=== PATIENT | female | born 1980 | race Caucasian/White ===

== ENCOUNTER 2016-11-08 18:30 | Emergency (ER) | payer OTHER ==
[2016-11-08 18:49] VITALS: TEMP 98.3
[2016-11-08] MEDS ORDERED: KETOROLAC 60 MG/2 ML VIAL IM STA (19:00)
[2016-11-08] MEDS ORDERED: ORPHENADRINE 30 MG/ML 2 ML VIAL IM STA (19:00)
--- NOTE | 2016-11-08 19:03 | ED ---
Back Pain HPI - General Chief Complaint: Back Pain/Injury Stated Complaint: BACK PAIN, NO TRAUMA Time Seen by Provider: 11/08/16 18:51 Source: patient, RN notes reviewed Limitations: no limitations - History of Present Illness Initial Comments: Patient is a 36-year-old female with chief complaint of lower back pain radiates down her legs and has some numbness and tingling down her legs. Patient reports it's mainly over her right side but she does have some leg. She reports that the pain is worse with position. She states that all the symptoms occurred after she was walking in her house and twisted quickly. Patient states that since then the pain has gotten much worse. She reports she' s taken Motrin Tylenol for the pain however has not touched the pain. She reports no specific trauma or history of back surgeries. She denies any saddle anesthesias reports that she has been able to urinate and has had normal bowel movements. She also has a chief complaint of right arm numbness that we'll start her shoulder and travel along the lateral aspect of her arm into her third fourth and fifth digits. She states that the numbness is continually aware and is not related to certain movements. She denies any specific pain just that she has anesthesias. She reports that those symptoms of been occurring for the past 3 months. - Related Data Home Medications Medication Instructions Recorded Confirmed Acetaminophen Tab [Tylenol Tab] 650 mg PO Q6H PRN 11/08/16 11/08/16 Ergocalciferol (Vitamin D2) 50,000 unit PO WE 11/08/16 11/08/16 [Vitamin D2] Escitalopram [Lexapro] 10 mg PO DAILY 11/08/16 11/08/16 Ibuprofen [Motrin] 400 - 800 mg PO Q6HR PRN 11/08/16 11/08/16 Previous Rx's Medication Instructions Recorded Cyclobenzaprine [Flexeril] 10 mg PO TID #15 tab 11/08/16 Dexamethasone 0.75 mg PO DAILY #12 tab 11/08/16 traMADol HCl [Ultram] 50 mg PO Q6H PRN #15 tab 11/08/16 Allergies Allergy/AdvReac Type Severity Reaction Status Date / Time No Known Allergies Allergy Verified 11/08/16 19:02 Review of Systems ROS Statement: Those systems with pertinent positive or pertinent negative responses have been documented in the HPI. ROS Other: All systems not noted in ROS Statement are negative. Past Medical History Past Medical History: No Reported History Additional Past Medical History / Comment(s): colitis History of Any Multi-Drug Resistant Organisms: None Reported Past Surgical History: No Surgical Hx Reported Past Psychological History: Anxiety, Depression Smoking Status: Current every day smoker Past Alcohol Use History: None Reported Past Drug Use History: None Reported - Past Family History Mother Family Medical History: Cancer General Exam - General Exam Comments Initial Comments: Patient is a pleasant 36-year-old female. She is on appear to be in any acute distress. Limitations: no limitations General appearance: alert, in no apparent distress Head exam: Present: atraumatic, normocephalic, normal inspection Eye exam: Present: normal appearance, PERRL, EOMI. Absent: scleral icterus, conjunctival injection, periorbital swelling ENT exam: Present: normal exam, mucous membranes moist Neck exam: Present: normal inspection. Absent: tenderness, meningismus, lymphadenopathy Respiratory exam: Present: normal lung sounds bilaterally. Absent: respiratory distress, wheezes, rales, rhonchi, stridor Cardiovascular Exam: Present: regular rate, normal rhythm, normal heart sounds. Absent: systolic murmur, diastolic murmur, rubs, gallop, clicks GI/Abdominal exam: Present: soft, normal bowel sounds. Absent: distended, tenderness, guarding, rebound, rigid Extremities exam: Present: normal inspection, full ROM, normal capillary refill. Absent: tenderness, pedal edema, joint swelling, calf tenderness Back exam: Present: normal inspection, paraspinal tenderness (bilateral vertebral tenderness ), vertebral tenderness (lumbar tenderness ). Absent: full ROM (Patient pain flexion and extension.), CVA tenderness (R), CVA tenderness (L), muscle spasm, rash noted Neurological exam: Present: alert, oriented X3, CN II-XII intact Psychiatric exam: Present: normal affect, normal mood Skin exam: Present: warm, dry, intact, normal color. Absent: rash Course Vital Signs 11/08/16 11/08/16 18:47 20:15 Temperature 98.3 F Pulse Rate 88 71 Respiratory 18 16 Rate Blood Pressure 108/72 106/67 O2 Sat by Pulse 97 96 Oximetry Medical Decision Making - Medical Decision Making Patient is a 36 year old female with mechanical back pain after a twisting motion 2 days ago. PAtient given IM Norflex and toradol and has had some relief with the pain. lumbar spine Xray is normal. Patient right arm intermittent paresthesias are likely related to a compressed nerve. Patient will be given orthopedic referral and Rx for flexeril, ultram, and steroids for the next few days. Patient encouraged to use heat to the lower back and slow stretching techinques. Patient understands treatment plan and will comply, return parameters discussed. - Radiology Data Lumbar spine x-ray shows her to rule out and alignment are maintained. No spondylolysis or spondylolisthesis. The disc spaces are maintained. Disposition Clinical Impression: Mechanical back pain Disposition: HOME SELF-CARE Condition: Good Instructions: Acute Low Back Pain (ED) Additional Instructions: Instructed to complete steroid prescription. Follow-up with skin care specialist if symptoms continue to persist. Return to the [facility] if any alarming signs or symptoms occur. Take pain medication and muscle relaxers as directed. Prescriptions: Cyclobenzaprine [Flexeril] 10 mg PO TID #15 tab Dexamethasone 0.75 mg PO DAILY #12 tab traMADol HCl [Ultram] 50 mg PO Q6H PRN #15 tab PRN Reason: Pain Referrals: Moira Sena III, MD [Primary Care Provider] - 1-2 days Time of Disposition: 20:02
--- NOTE | 2016-11-08 20:00 | XR ---
EXAMINATION TYPE: XR lumbar spine 2 or 3V DATE OF EXAM ORDERED: 11/08/2016 7:50 PM HISTORY: Low back pain. COMPARISON: None. FINDINGS: Vertebral body height and alignment are maintained. There is no spondylolysis or spondylol isthesis. Disc spaces are maintained. The pedicles are intact. IMPRESSION: NO ACUTE OSSEOUS LESION.
[2016-11-08] MEDS ORDERED: traMADol 50 MG STARTER PACK 3 TAB BTL PO STA (20:05)
[2016-11-08 20:16] VITALS: BP 106/67; PULSE 71; RESP 16
== END 2016-11-08 20:15 | disposition home or self-care (01) ==
LOC: EC 18:30
DX: M54.9 Dorsalgia, unspecified (principal); F41.9 Anxiety disorder, unspecified; F32.9 Major depressive disorder, single episode, unspecified; Z79.899 Other long term (current) drug therapy; F17.200 Nicotine dependence, unspecified, uncomplicated; X50.1XXA Overexertion from prolonged static or awkward postures, initial encounter; Y93.01 Activity, walking, marching and hiking; Y92.009 Unspecified place in unspecified non-institutional (private) residence as the place of occurrence of the external cause
CPT/HCPCS: 72100; 96372 ×2; 99283; J2360; J1885

== ENCOUNTER 2017-01-01 18:51 | Emergency (ER) | payer OTHER ==
[2017-01-01 19:23] VITALS: BP 125/86; PULSE 98; RESP 16; TEMP 98.5
--- NOTE | 2017-01-01 19:31 | ED ---
General Adult HPI - General Chief complaint: Dental/Oral Stated complaint: tooth pain Time Seen by Provider: 01/01/17 19:12 Source: patient, RN notes reviewed Mode of arrival: ambulatory Limitations: no limitations - History of Present Illness Initial comments: Patient 36-year-old female who presents emergency room today with a chief complaint of increased dental pain. Patient does admit to pain locally over tooth #6. Patient does admit to a dental fracture approximately a month ago. Denies any drainage discharge. States that pain increased last 3 days. Patient states been using [id number] medications of ibuprofen and chills with little relief the symptoms. Patient denies any recent fever, chills, shortness of breath, chest pain, back pain, abdominal pain, nausea or vomiting, numbness or tingling, dysuria or hematuria, constipation or diarrhea, headaches or visual changes, or any other complaints. - Related Data Home Medications Medication Instructions Recorded Confirmed Acetaminophen Tab [Tylenol Tab] 650 mg PO Q6H PRN MDD SEE COMMENTS 11/08/16 Ibuprofen [Motrin] 400 - 800 mg PO Q6HR PRN 11/08/16 01/01/17 Escitalopram [Lexapro] 20 mg PO DAILY 01/01/17 01/01/17 Previous Rx's Medication Instructions Recorded Hydrocodone/Acetaminophen [[place] 1 each PO Q6HR PRN #20 tab 01/01/17 5-325] Ibuprofen [Motrin] 600 mg PO Q6HR PRN #40 day 01/01/17 Penicillin V Potassium [Pen Vee K] 500 mg PO QID 10 Days 01/01/17 Allergies Allergy/AdvReac Type Severity Reaction Status Date / Time No Known Allergies Allergy Verified 01/01/17 19:21 Review of Systems ROS Statement: Those systems with pertinent positive or pertinent negative responses have been documented in the HPI. ROS Other: All systems not noted in ROS Statement are negative. Past Medical History Past Medical History: No Reported History Additional Past Medical History / Comment(s): colitis History of Any Multi-Drug Resistant Organisms: None Reported Past Surgical History: No Surgical Hx Reported Past Psychological History: Anxiety, Depression Smoking Status: Current every day smoker Past Alcohol Use History: None Reported Past Drug Use History: None Reported - Past Family History Mother Family Medical History: Cancer General Exam - General Exam Comments Initial Comments: General: The patient is awake and alert, in no distress, and does not appear acutely ill. Eye: Pupils are equal, round and reactive to light, extra-ocular movements are intact. No nystagmus. There is normal conjunctiva bilaterally. No signs of icterus. Ears, nose, mouth and throat: There are moist mucous membranes and no oral lesions. Fractured tooth of tooth #6 to the gumline. Locally tender over the area. No sign of abscess. Neck: The neck is supple, there is no tenderness or JVD. Cardiovascular: There is a regular rate and rhythm. No murmur, rub or gallop is appreciated. Respiratory: Lungs are clear to auscultation, respirations are non-labored, breath sounds are equal. No wheezes, stridor, rales, or rhonchi. Musculoskeletal: Normal ROM, no tenderness. Strength 5/5. Sensation intact. Pulses equal bilaterally 2+. Neurological: A&O x 3. CN II-XII intact, There are no obvious motor or sensory deficits. Coordination appears grossly intact. Speech is normal. Skin: Skin is warm and dry and no rashes or lesions are noted. Psychiatric: Cooperative, appropriate mood & affect, normal judgment. Limitations: no limitations Course Vital Signs 01/01/17 19:17 Temperature 98.5 F Pulse Rate 98 Respiratory 16 Rate Blood Pressure 125/86 O2 Sat by Pulse 95 Oximetry Disposition Clinical Impression: Pain, dental Disposition: HOME SELF-CARE Condition: Good Instructions: Toothache (ED) Additional Instructions: Please use medication as discussed. Please follow-up with dentist/oral surgeon as discussed. Please return to emergency room if the symptoms increase or worsen or for any other concerns. Prescriptions: Hydrocodone/Acetaminophen [[place] 5-325] 1 each PO Q6HR PRN #20 tab PRN Reason: Pain Ibuprofen [Motrin] 600 mg PO Q6HR PRN #40 day PRN Reason: Pain Penicillin V Potassium [Pen Vee K] 500 mg PO QID 10 Days Time of Disposition: 19:29
== END 2017-01-01 19:38 | disposition home or self-care (01) ==
LOC: EC 18:51
DX: K08.89 Other specified disorders of teeth and supporting structures (principal); K03.81 Cracked tooth; F32.9 Major depressive disorder, single episode, unspecified; F41.9 Anxiety disorder, unspecified; F17.200 Nicotine dependence, unspecified, uncomplicated; Z79.899 Other long term (current) drug therapy
CPT/HCPCS: 99282

== ENCOUNTER 2017-07-28 18:38 | Emergency (ER) | payer OTHER ==
[2017-07-28] MEDS ORDERED: HYDROcodone/APAP 5-325MG 1 EACH TAB PO STA (18:56)
--- NOTE | 2017-07-28 19:31 | ED ---
Extremity Problem HPI - General Chief complaint: Extremity Problem,Nontraumatic Stated complaint: left leg pain, poss cellulitis Time Seen by Provider: 07/28/17 18:49 Source: patient, RN notes reviewed Mode of arrival: wheelchair Limitations: no limitations - History of Present Illness Initial comments: 37-year-old female presents emergency Department chief complaint left leg pain, swelling. Patient states her last few days. Patient states that she has dyshidrotic eczema and states that she's had an exacerbation in her foot which is typical for her. She is concerned as it may be secondary infection and cellulitis. Patient has fever, chills. She states that her left leg is completely swollen and pain TO HER THIGH. SHE STATES THAT SHE'S BEEN WALKING DIFFERENTLY BECAUSE OF THE SORES ON HER FEET WHICH SHE BELIEVES IS CAUSING THE PAIN. PATIENT DENIES ANY BACK PAIN, HEADACHE, DIZZINESS, CHEST PAIN OR SHORTNESS BREATH. - Related Data Home Medications Medication Instructions Recorded Confirmed Ibuprofen [Children's Motrin] 600 mg PO BID PRN 07/28/17 07/28/17 Previous Rx's Medication Instructions Recorded Cephalexin [Keflex] 500 mg PO Q6HR #40 cap 07/28/17 Hydrocodone/Acetaminophen [[place] 1 tab PO Q6HR PRN #20 tab 07/28/17 5-325] Allergies Allergy/AdvReac Type Severity Reaction Status Date / Time No Known Allergies Allergy Verified 07/28/17 19:09 Review of Systems ROS Statement: Those systems with pertinent positive or pertinent negative responses have been documented in the HPI. ROS Other: All systems not noted in ROS Statement are negative. Past Medical History Past Medical History: No Reported History, Blood Disorder, Skin Disorder Additional Past Medical History / Comment(s): colitis, eczema History of Any Multi-Drug Resistant Organisms: None Reported Past Surgical History: No Surgical Hx Reported Past Psychological History: Anxiety, Depression Smoking Status: Current every day smoker Past Alcohol Use History: None Reported Past Drug Use History: None Reported - Past Family History Mother Family Medical History: Cancer General Exam Limitations: no limitations General appearance: alert, in no apparent distress Head exam: Present: atraumatic, normocephalic, normal inspection Neck exam: Present: normal inspection, full ROM. Absent: tenderness, meningismus, lymphadenopathy Respiratory exam: Present: normal lung sounds bilaterally. Absent: respiratory distress, wheezes, rales, rhonchi, stridor Cardiovascular Exam: Present: regular rate, normal rhythm, normal heart sounds. Absent: systolic murmur, diastolic murmur, rubs, gallop, clicks Extremities exam: Present: other (Left leg there is moderate swelling compared to the right leg, pedal pulses are equal bilaterally, there are open lesions sores that are erythematous on the foot and heel region consistent with her dyshidrotic eczema, there is tenderness to the calf and medial thigh aspect) Skin exam: Present: warm, dry Course Vital Signs 07/28/17 18:43 Temperature 98.3 F Pulse Rate 92 Respiratory 16 Rate Blood Pressure 122/77 O2 Sat by Pulse 98 Oximetry Medical Decision Making - Medical Decision Making 37-year-old female presented emergency department for left leg pain, swelling. There is no evidence of acute DVT. Patient has multiple lymph nodes other pain. Patient does have swelling related to the cellulitis. Patient was started on antibiotics lab work was reviewed no acute abnormalities. - Lab Data Result diagrams: 07/28/17 19:40 07/28/17 19:40 Lab Results 07/28/17 07/28/17 07/28/17 Range/Units 19:40 19:40 19:40 WBC 9.9 (3.8-10.6) k/uL RBC 4.37 (3.80-5.40) m/uL Hgb 13.6 (11.4-16.0) gm/dL Hct 40.0 (34.0-46.0) % MCV 91.7 (80.0-100.0) fL MCH 31.1 (25.0-35.0) pg MCHC 34.0 (31.0-37.0) g/dL RDW 12.9 (11.5-15.5) % Plt Count 293 (150-450) k/uL Neutrophils % 60 % Lymphocytes % 28 % Monocytes % 7 % Eosinophils % 3 % Basophils % 1 % Neutrophils # 6.0 (1.3-7.7) k/uL Lymphocytes # 2.7 (1.0-4.8) k/uL Monocytes # 0.7 (0-1.0) k/uL Eosinophils # 0.3 (0-0.7) k/uL Basophils # 0.1 (0-0.2) k/uL Sodium 138 (137-145) mmol/L Potassium 3.9 (3.5-5.1) mmol/L Chloride 107 (98-107) mmol/L Carbon Dioxide 21 L (22-30) mmol/L Anion Gap 10 mmol/L BUN 4 L (7-17) mg/dL Creatinine 0.60 (0.52-1.04) mg/dL Est GFR (MDRD) Af Amer >60 (>60 ml/min/1.73 sqM) Est GFR (MDRD) Non-Af >60 (>60 ml/min/1.73 sqM) Glucose 92 (74-99) mg/dL Plasma Lactic Acid Chris 0.8 (0.7-2.0) mmol/L Calcium 8.7 (8.4-10.2) mg/dL Disposition Clinical Impression: Left leg cellulitis, Lymphedema of left leg, Leg edema, left Disposition: HOME SELF-CARE Condition: Stable Instructions: Cellulitis (ED), Leg Edema (ED) Additional Instructions: Please return to the Emergency Department if symptoms worsen or any other concerns. Prescriptions: Cephalexin [Keflex] 500 mg PO Q6HR #40 cap Hydrocodone/Acetaminophen [[place] 5-325] 1 tab PO Q6HR PRN #20 tab PRN Reason: Pain Referrals: Moira Sena III, MD [Primary Care Provider] - 1-2 days Time of Disposition: 20:27
[2017-07-28 20:02] LABS: Basophils # (A) 0.1 k/uL (0-0.2); Basophils % (A) 1 %; CH 30.3; CHCM 33.2; Eosinophils # (A) 0.3 k/uL (0-0.7); Eosinophils % (A) 3 %; HDW 2.32; HGB 13.6 gm/dL (11.4-16.0); Luc # (Auto) 0.22; Luc % (Auto) 2; Lymphocytes # (A) 2.7 k/uL (1.0-4.8); Lymphocytes % (A) 28 %; MCH 31.1 pg (25.0-35.0); MCV 91.7 fL (80.0-100.0); Mean Platelet Volume 7.1; Monocytes # (A) 0.7 k/uL (0-1.0); Monocytes % (A) 7 %; Neutrophils % (A) 60 %; RBC 4.37 m/uL (3.80-5.40); RDW 12.9 % (11.5-15.5); WBC 9.9 k/uL (3.8-10.6); WBC (Perox) 9.47
--- NOTE | 2017-07-28 20:03 | US ---
EXAMINATION TYPE: US venous doppler duplex LE LT DATE OF EXAM: 07/28/2017 7:38 PM COMPARISON: NONE CLINICAL HISTORY: 37-year-old female Pain. Left leg tenderness, skin is red and warm. Patient feels l ump left groin. SIDE PERFORMED: Left TECHNIQUE: The lower extremity deep venous system is examined utilizing real time linear array sonog gretel with graded compression, doppler sonography and color-flow sonography. FINDINGS: VESSELS IMAGED: External Iliac Vein (EIV) Common Femoral Vein Deep Femoral Vein Greater Saphenous Vein * Femoral Vein Popliteal Vein Proximal Calf Veins (* superficial vessels) Enlarged nodes noted left groin over where patient feels lump, largest measures 3.0 x 1.5 x 1.6 cm, Left Leg: Negative for DVT IMPRESSION: 1. No evidence for DVT within the left lower extremity imaged from the groin to the upper calf. 2. Mildly enlarged left inguinal lymph nodes measuring up to 1.6 cm short axis. This may be reactive to upstream infection or secondary to systemic disease. Clinical correlation recommended.
[2017-07-28 20:11] LABS: Anion Gap 10 mmol/L; Blood Urea Nitrogen 4 mg/dL (7-17); Calcium 8.7 mg/dL (8.4-10.2); Carbon Dioxide 21 mmol/L (22-30); Chloride 107 mmol/L (98-107); Glucose 92 mg/dL (74-99); Non-African American GFR(MDRD) >60 (>60 ml/min/1.73 sqM); Potassium 3.9 mmol/L (3.5-5.1); Sodium 138 mmol/L (137-145)
[2017-07-28] MEDS ORDERED: ceFAZolin 1,000 MG in DEXTROSE/WATER 1 50ML.BAG IVPB STA (20:26)
[2017-07-28] MEDS ORDERED: DEXAMETHASONE SOD PHOSPHATE 10 MG/ML 1 ML VIAL IV STA (20:30)
[2017-07-28 21:37] VITALS: BP 98/57; PULSE 87; RESP 18; TEMP 98
== END 2017-07-28 21:37 | disposition home or self-care (01) ==
LOC: EC 18:38
DX: L03.116 Cellulitis of left lower limb (principal); I89.0 Lymphedema, not elsewhere classified; R60.0 Localized edema; F17.200 Nicotine dependence, unspecified, uncomplicated
CPT/HCPCS: 99284 ×2; 96365 ×2; 96375 ×2; 36415; 80048; 83605; 85025; 87040; 93971; J1100; J0690

== ENCOUNTER 2017-12-24 19:22 | Emergency (ER) | payer OTHER ==
[2017-12-24 19:52] VITALS: RESP 18
[2017-12-24] MEDS ORDERED: traMADol 50 MG STARTER PACK 3 TAB BTL PO STA (20:53)
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
[2017-12-24 21:19] VITALS: BP 121/78; PULSE 63; TEMP 97.2
== END 2017-12-24 21:28 | disposition home or self-care (01) ==
LOC: EC 19:22
DX: T22.112A Burn of first degree of left forearm, initial encounter (principal); T20.12XA Burn of first degree of lip(s), initial encounter; T31.0 Burns involving less than 10% of body surface; F17.200 Nicotine dependence, unspecified, uncomplicated; X10.2XXA Contact with fats and cooking oils, initial encounter; Y92.009 Unspecified place in unspecified non-institutional (private) residence as the place of occurrence of the external cause
CPT/HCPCS: 16000; 99283

== ENCOUNTER 2018-01-13 22:28 | Emergency (ER) | payer OTHER ==
[2018-01-13 22:34] VITALS: BP 117/77; PULSE 94; RESP 18; TEMP 98.4
[2018-01-13] MEDS ORDERED: MORPHINE SULFATE 4 MG/ML SYRINGE IM STA (22:40)
[2018-01-13] MEDS ORDERED: MORPHINE SULF 5MG/10ML VL ONE (22:44)
[2018-01-13] MEDS ORDERED: MORPHINE SULFATE (PF) 1 MG/ML AMP IV ONE (22:46)
--- NOTE | 2018-01-13 22:51 | ED ---
ENT HPI - General Chief complaint: Dental/Oral Stated complaint: DENTAL PAIN Time Seen by Provider: 01/13/18 22:35 Source: patient Mode of arrival: ambulatory Limitations: no limitations - History of Present Illness Initial comments: 37-year-old female patient presents to the emergency department today for evaluation of right upper dental pain. Patient states on Sunday she did have multiple temporary crowns and a root canal performed on that side. Patient states that she had pain since the procedure. States it has continued over the weekend and seems to be getting worse. States she has not having some facial swelling to the right side. She denies any trismus, difficulty swallowing, or difficulty breathing. She denies any fevers or chills. Denies any nausea, vomiting, or back pain. She is taking Weskan, ibuprofen, doing hot compresses, and amoxicillin at home without relief. Patient denies any recent rash, shortness breath, chest pain, abdominal pain, diarrhea, constipation, back pain, numbness, tingling, dizziness, weakness, hematuria, dysuria, urinary urgency, urinary frequency, headache, visual changes, or any other complaints. - Related Data Previous Rx's Medication Instructions Recorded SILVER sulfADIAZINE CREAM 1 applic TOPICAL BID #1 tube 12/24/17 [Silvadene Cream] traMADol HCl [Ultram] 50 mg PO Q6H PRN #5 tab 12/24/17 Amoxic-Pot Clav 875-125Mg 1 tab PO Q12HR #20 tablet 01/13/18 [Augmentin 875-125] Hydrocodone/Acetaminophen [Weskan 1 tab PO Q6HR PRN #12 tab 01/13/18 5-325] Allergies Allergy/AdvReac Type Severity Reaction Status Date / Time No Known Allergies Allergy Verified 01/13/18 22:32 Review of Systems ROS Statement: Those systems with pertinent positive or pertinent negative responses have been documented in the HPI. ROS Other: All systems not noted in ROS Statement are negative. Past Medical History Past Medical History: Blood Disorder, Skin Disorder Additional Past Medical History / Comment(s): colitis, eczema History of Any Multi-Drug Resistant Organisms: None Reported Past Surgical History: No Surgical Hx Reported Past Psychological History: Anxiety, Depression Smoking Status: Current every day smoker Past Alcohol Use History: None Reported Past Drug Use History: None Reported - Past Family History Mother Family Medical History: Cancer General Exam Limitations: no limitations General appearance: alert, in no apparent distress, other (Physical well- developed, well-nourished elderly female patient in no acute distress. Vital signs upon presentation are temperature 98.4F, pulse 94, respirations 18, blood pressure 117/77, pulse ox 98% on room air.) Eye exam: Present: normal appearance, PERRL, EOMI. Absent: scleral icterus, conjunctival injection, periorbital swelling ENT exam: Present: normal exam, normal oropharynx, mucous membranes moist, other (Mild right-sided facial swelling. Gingiva are pink with no evidence of erythema or edema. No evidence of abscess.) Neck exam: Present: normal inspection. Absent: tenderness, meningismus, lymphadenopathy Respiratory exam: Present: normal lung sounds bilaterally. Absent: respiratory distress, wheezes, rales, rhonchi, stridor Cardiovascular Exam: Present: regular rate, normal rhythm, normal heart sounds. Absent: systolic murmur, diastolic murmur, rubs, gallop, clicks Neurological exam: Present: alert, oriented X3, CN II-XII intact Psychiatric exam: Present: normal affect, normal mood Skin exam: Present: warm, dry, intact, normal color. Absent: rash Course Vital Signs 01/13/18 22:32 Temperature 98.4 F Pulse Rate 94 Respiratory 18 Rate Blood Pressure 117/77 O2 Sat by Pulse 98 Oximetry Medical Decision Making - Medical Decision Making 37-year-old female patient presented to the emergency department today for complaints of right-sided dental pain. Physical examination did reveal mild right-sided facial swelling, there was no evidence of gingival hyperplasia or erythema. No evidence of abscess. Patient is afebrile. She is currently taking amoxicillin and has home pain medication Weskan and ibuprofen. She states she only has 3 Weskan left. Given her recent dental procedure we will switch her prescription for amoxicillin to Augmentin. I will give her refill on the Weskan for pain control. She'll be given an IM dose of morphine here in the department. She is instructed to call her dentist as soon as possible for reevaluation. She is instructed to return here immediately for any new, worsening, or concerning symptoms. She verbalizes understanding and agrees with this plan. Disposition Clinical Impression: Dental implant pain Disposition: HOME SELF-CARE Condition: Good Instructions: Toothache (ED) Additional Instructions: Continue warm compresses, anti-inflammatory medications and prescription narcotics. Follow-up with the dentist as soon as possible. Return here immediately for any new, worsening, or concerning symptoms. Prescriptions: Amoxic-Pot Clav 875-125Mg [Augmentin 875-125] 1 tab PO Q12HR #20 tablet Hydrocodone/Acetaminophen [Weskan 5-325] 1 tab PO Q6HR PRN #12 tab PRN Reason: Pain Referrals: Moira Sena III, MD [Primary Care Provider] - 1-2 days Time of Disposition: 22:51
== END 2018-01-13 23:16 | disposition home or self-care (01) ==
LOC: EC 22:28
DX: M27.69 Other endosseous dental implant failure (principal); F17.200 Nicotine dependence, unspecified, uncomplicated
CPT/HCPCS: 99282; 96374; J2274; J2270

== ENCOUNTER → 2018-01-19 | Outpatient (CLI) | payer OTHER ==
[2018-01-19 11:26] LABS: Cholesterol 175 mg/dL (<200); HDL Cholesterol 42 mg/dL (40-60); LDL Cholesterol,Calculated 104 mg/dL (0-99); Triglycerides 147 mg/dL (<150)
[2018-01-19 17:38] LABS: Vitamin D 25 Hydroxy 14.7 ng/mL (30.0-100.0)
== END | disposition home or self-care (01) ==
LOC: LABWHC1 10:30
PROVIDERS: ATTEND Nurse Practitioner Family
DX: E72.12 Methylenetetrahydrofolate reductase deficiency (principal); R53.82 Chronic fatigue, unspecified; Z13.220 Encounter for screening for lipoid disorders
CPT/HCPCS: 36415; 80061; 82306; 82607; 83090; 84207

== ENCOUNTER → 2018-01-23 | Outpatient (CLI) | payer OTHER ==
--- NOTE | 2018-01-23 09:43 | MM ---
Reason for exam: clinical finding. Last mammogram was performed 5 years and 1 month ago. History: Family history of breast cancer in mother at age 52, breast cancer in maternal aunt at age 50, and breast cancer in maternal cousin at age 26. Benign excisional biopsy of the left breast, 2012. Took hormonal contraceptives beginning at age 20. Physical Findings: Nurse did not find any significant physical abnormalities on exam. MG 3D Diag Mammo W/Cad HECTOR Bilateral CC and MLO view(s) were taken. Prior study comparison: December 11, 2012, mammogram. November 29, 2012, mammogram. November 12, 2012, mammogram. The breast tissue is heterogeneously dense. This may lower the sensitivity of mammography. There is no discrete abnormality. Chronic changes. No significant new findings when compared with previous films. These results were verbally communicated with the patient and result sheet given to the patient on 01/23/18. ASSESSMENT: Benign, BI-RAD 2 RECOMMENDATION: Routine screening mammogram of both breasts in 1 year. Manage patient on a clinical basis.
--- NOTE | 2018-01-23 09:48 | USB ---
Reason for exam: clinical finding. History: Family history of breast cancer in mother at age 52, breast cancer in maternal aunt at age 50, and breast cancer in maternal cousin at age 26. Benign excisional biopsy of the left breast, 2012. Took hormonal contraceptives beginning at age 20. US Breast RT Prior study comparison: November 29, 2012, ultrasound, performed at [facility]. Right breast ultrasound includes all four quadrants, the retroareolar region and axilla. Finding demonstrates a 0.5 x 0.3 x 0.4cm cystic cluster at 12 o'clock, a 0.7 x 0.4 x 0.5cm mixed lesion at 12 o'clock, a 0.5 x 0.4 x 0.4cm cystic lesion at 6 o'clock, a 0.8 x 0.5 x 1.0cm hypoechoic lesion at 8 o'clock, a 0.5 x 0.2 x 0.4cm lesion too small to characterize at 10 o'clock and a 0.8 x 0.6 x 0.6cm lesion at 10 o'clock. These results were verbally communicated with the patient and result sheet given to the patient on 01/23/18. ASSESSMENT: Probably benign, BI-RAD 3 RECOMMENDATION: Ultrasound of the right breast in 3 months. Manage on a clinical basis with regard to pain at nipple.
== END | disposition home or self-care (01) ==
LOC: RADMAMWWP 07:39
PROVIDERS: ATTEND Family Medicine
DX: N64.4 Mastodynia (principal)
CPT/HCPCS: 77066; 76641; G0279

== ENCOUNTER → 2018-03-16 | Outpatient (CLI) | payer OTHER ==
--- NOTE | 2018-03-16 15:04 | XR ---
EXAMINATION TYPE: XR lumbosacral spine min 4V DATE OF EXAM: 03/16/2018 CLINICAL HISTORY: pain COMPARISON: NONE TECHNIQUE: Frontal, lateral, and oblique images of the lumbar spine are obtained. FINDINGS: Mild curvature convex to the right. There are 5 lumbar type vertebral bodies identified. The lumbar spine shows satisfactory alignment without evidence of acute fracture or dislocation. Vert ebral body heights are within normal limits. Disc spaces are well preserved. The overlying soft tis tyra appears unremarkable. IMPRESSION: No acute fracture or dislocation is seen in the lumbar spine.ICD 10 NO FRACTURE, INITIAL EVALUATION
== END | disposition home or self-care (01) ==
LOC: RADXRMAIN 14:33
PROVIDERS: ATTEND Family Medicine
DX: M54.42 Lumbago with sciatica, left side (principal); M54.41 Lumbago with sciatica, right side
CPT/HCPCS: 72110

== ENCOUNTER → 2018-09-23 | Outpatient (CLI) | payer OTHER ==
--- NOTE | 2018-09-23 15:40 | MR ---
EXAMINATION TYPE: MR lumbar spine wo con DATE OF EXAM: 09/23/2018 COMPARISON: Lumbar spine x-ray March 16, 2018. HISTORY: LBP, BLE pain/weakness/numbness x 1yr. Lumbago with sciatica per order. TECHNIQUE: Multiplanar, multisequence imaging of the lumbar spine is performed without IV contrast. FINDINGS: Sagittal images of the lumbar spine show vertebral body heights and alignment to appear sat isfactory. There is disc desiccation with mild posterior narrowing L5-S1 level otherwise the interver tebral discs demonstrate normal heights and hydration. Annular tear with increased signal posteriorly L4-L5 level is seen. Posterior disc herniation noted L5-S1 level on sagittal images. The conus medu llaris is slightly lower in position ending superior L2 level without abnormal signal or clumping of lumbosacral nerve roots. Large hemangioma posterior L4 level is seen. Axial images show the T12-L1, L1-L2, and L2-L3 levels to appear within normal limits. Axial images at the L3-L4 level show mild broad based posterior disc protrusion minimally effacing an terior thecal sac on axial image 15, bilateral neural foramina are patent. Axial images at L4-L5 level show mild facet degenerative changes bilaterally. There is broad-based po sterior disc protrusion mildly effacing anterior thecal sac. Bilateral neural foramina are patent. Axial images at the L5-S1 level show prominent left paracentral disc protrusion axial image 4 effacin g anterior thecal sac possibly encroaching on central left S1 nerve. Correlate clinically. Bilateral neural foramina are patent. No suspicious incidental retroperitoneal findings are seen. IMPRESSION: Prominent disc herniation L5-S1 level.
== END | disposition home or self-care (01) ==
LOC: RADMRIMAIN 14:31
PROVIDERS: ATTEND Family Medicine
DX: M51.27 Other intervertebral disc displacement, lumbosacral region (principal)
CPT/HCPCS: 72148

== ENCOUNTER → 2018-10-02 | Outpatient (CLI) | payer OTHER | END | disposition home or self-care (01) | LOC: LABWHC1 14:33 | PROVIDERS: ATTEND Nurse Practitioner Family | DX: R79.1 Abnormal coagulation profile (principal) | CPT/HCPCS: 36415; 85379 ==

== ENCOUNTER → 2023-07-23 | Outpatient (CLI) | payer BC ==
--- NOTE | 2023-07-23 13:42 | US ---
EXAMINATION TYPE: US kidneys/renal and bladder DATE OF EXAM: 07/23/2023 COMPARISON: 01/30/2018 CLINICAL INDICATION: Female, 43 years old with history of R31.29 HEMATURIA; hematuria x 6 years EXAM MEASUREMENTS: Right Kidney: 10.4 x 4.0 x 4.7 cm Left Kidney: 11.1 x 5.2 x 4.6 cm Right Kidney: No hydronephrosis or masses seen Left Kidney: No hydronephrosis or masses seen Bladder: wnl Bilateral Jets seen: Yes There is no evidence for hydronephrosis at this point in time. No nephrolithiasis is seen. No andre s are identified. The urinary bladder is anechoic. Bilateral ureteral jets are seen. IMPRESSION: No acute process. No evidence of obstructive uropathy. No renal calculi definitively visualized.
--- NOTE | 2023-07-23 13:44 | US ---
EXAMINATION TYPE: US mass soft tissue chest/back DATE OF EXAM: 07/23/2023 COMPARISON: NONE CLINICAL INDICATION: Female, 43 years old with history of D1730 LIPOMATOUS AALIYAH OF SKIN; Lump on back bilateral shoulder blades. TECHNIQUE: Grayscale imaging of the patient's area of palpable abnormality FINDINGS: Scanned area of concern no abnormalities seen. Suspicious organizing fluid collections or masses. IMPRESSION: Lipomatous tissue without focal mass.
== END | disposition home or self-care (01) ==
LOC: RADUSWWP 12:12
PROVIDERS: ATTEND Family Medicine
DX: D17.30 Benign lipomatous neoplasm of skin and subcutaneous tissue of unspecified sites (principal); R31.29 Other microscopic hematuria
CPT/HCPCS: 76770

== ENCOUNTER → 2023-11-06 | Outpatient (CLI) | payer BC ==
--- NOTE | 2023-11-06 14:03 | USB ---
Reason for Exam: Clinical finding. Patient History: Menarche at age 13. First Full-Term at age 26. Premenopausal. Hormonal Contraceptives, from age 20 until age 28. 2012, Benign Excisional Biopsy on the left side. Maternal cousin had breast cancer, age 26. Maternal aunt had breast cancer, age 50. Mother had breast cancer, age 52. Risk Values: Lisha 5 year model risk: 2.0%. NCI Lifetime model risk: 23.7%. Technique: Method: Targeted. Prior Study Comparison: 11/29/2012 Screening Mammogram, Unknown. 12/11/2012 Screening Mammogram, Unknown. 01/23/2018 Bilateral Diagnostic Mammogram, [facility]. Findings: The upper section of the breast of the right breast, the lateral section of the breast of the right breast, the axilla of the right breast and the retroareolar of the right breast were scanned. Targeted ultrasound right breast 8:00 11:00 position including the subareolar region and axilla. * Patient's palpable site at 7:00 shows no discrete abnormality. * Patient's palpable site at 8:00, 4 cm from the nipple shows a 1.1 x 0.8 x 0.6 cm oval circumscribed hypoechoic lesion, unchanged from 2018. * At the 9:00 position, 4 cm from the nipple, a similar but smaller 8 x 8 x 4 mm oval circumscribed hypoechoic lesion is present. * At the 11:00 position, 4 cm from the nipple, there is a benign 6 mm cyst. * At the 12:00 position, 1 cm from the nipple, there is an oval hypoechoic circumscribed lesion measuring 8 x 6 x 4 mm, possibly measuring 7 x 5 x 4 mm back in 2018. A benign etiology is suggested. Short interval follow-up recommended for these findings. Overall Assessment: Probably benign, BI-RAD 3 Management: Diagnostic Mammogram of the right breast in 6 months. Diagnostic Breast Ultrasound of the right breast in 6 months. SEE NOTE BELOW IN REGARDS TO PATIENT'S INCREASED INCREASED LIFETIME RISK SCORE. A clinical breast exam by your physician is recommended on an annual basis and results should be correlated with mammographic findings. This exam should not preclude additional follow-up of suspicious palpable abnormalities. Results were given to the patient verbally at the time of exam. Note on Lisha scores and lifetime risk: 1. A Lisha score greater than 3% is considered moderate risk. If this is the case, consider specialist referral to assess eligibility for a risk reducing agent. 2. If overall lifetime risk for the development of breast cancer is 20% or higher, the patient may qualify for future screening with alternating mammogram and breast MRI. Electronically signed and approved by: Eyal Mueller M.D. Radiologist
--- NOTE | 2023-11-06 14:04 | MM ---
Reason for Exam: Clinical finding. Last mammogram was performed 5 year(s) and 9 month(s) ago. Patient History: Menarche at age 13. First Full-Term at age 26. Premenopausal. Hormonal Contraceptives, from age 20 until age 28. 2012, Benign Excisional Biopsy on the left side. Maternal cousin had breast cancer, age 26. Maternal aunt had breast cancer, age 50. Mother had breast cancer, age 52. Last menstrual period: 11/06/2023 Risk Values: Lisha 5 year model risk: 2.0%. NCI Lifetime model risk: 23.7%. Prior Study Comparison: 11/12/2012 Screening Mammogram, Unknown. 11/29/2012 Screening Mammogram, Unknown. 11/29/2012 Diagnostic Ultrasound, [facility]. 12/11/2012 Screening Mammogram, Unknown. 01/23/2018 Bilateral Diagnostic Mammogram, [facility]. 01/23/2018 Right Diagnostic Ultrasound, [facility]. Tissue Density: The breast tissue is heterogeneously dense. This may lower the sensitivity of mammography. Findings: Analyzed By CAD. Underlying bilateral nodularity appears to be largely unchanged. 2 palpable markers are present on the right side for which further ultrasound evaluation is recommended. An area of asymmetric density superior right MLO view may be slightly more pronounced. Otherwise, no significant change. Overall Assessment: Incomplete: need additional imaging evaluation, BI-RAD 0 Management: Diagnostic Breast Ultrasound of the right breast. Electronically signed and approved by: Eyal Mueller M.D. Radiologist
== END | disposition home or self-care (01) ==
LOC: RADMAMWWP 12:58
PROVIDERS: ATTEND Family Medicine
DX: R92.333 Mammographic heterogeneous density, bilateral breasts (principal); Z92.0 Personal history of contraception; Z80.3 Family history of malignant neoplasm of breast
CPT/HCPCS: 77062; 77066

== ENCOUNTER → 2024-07-25 | Outpatient (CLI) | payer BC ==
--- NOTE | 2024-08-01 10:22 | CT ---
EXAMINATION TYPE: CT chest wo con DATE OF EXAM: 07/25/2024 COMPARISON: None HISTORY: Pain in thoracic spine, spasms, small thoracic subcutaneous mass around T7, LT paraspinal glover bcutaneous mass around T8/T9. CT DLP: 275.[address] of the chest was performed with lung and mediastinal window settings submitted. The la ck of contrast limits evaluation of the vascular, mediastinal and parenchymal structures including th e upper abdomen. LUNGS: The lungs are clear and free of infiltrate. No atelectasis. No pulmonary nodule or mass is de tected. No pleural effusion. No CT evidence of interstitial lung disease. MEDIASTINUM/YANET: Thoracic aorta is of normal caliber with limited evaluation given lack of contrast . The heart is not enlarged. No evidence for mediastinal mass. No lymph nodes greater than 1cm. UPPER ABDOMEN: No significant abnormality is seen. OTHER: No significant other abnormality. IMPRESSION: 1. No distinct abnormality about the thoracic spine. If symptoms persist consider MRI of the thoraci c spine. [facility], , 08/01/2024 10:20 AM
== END | disposition home or self-care (01) ==
LOC: RADCTMAIN 08:44
PROVIDERS: ATTEND Orthopaedic Surgery Orthopaedic Surgery of the Spine
DX: R22.2 Localized swelling, mass and lump, trunk
CPT/HCPCS: 71250

== ENCOUNTER → 2024-08-08 | Outpatient (CLI) | payer BC ==
[2024-08-08 11:11] LABS: Appearance,Urine Clear (Clear); Bilirubin,Urine Negative (Negative); Blood,Urine Moderate (Negative); Color,Urine Light Yellow; Glucose,Urine (UA) Negative (Negative); Ketones,Urine Negative (Negative); Leukocyte Esterase,Urine Negative (Negative); Mucus,Urine Rare /hpf; Nitrite,Urine Negative (Negative); Protein,Urine Negative (Negative); RBC,Urine 3 /hpf (0-5); Specific Gravity,Urine 1.016 (1.001-1.035); Squamous Epithelial Cell,Urine 1 /hpf (0-4); Urobilinogen,Urine <2.0 mg/dL (<2.0); WBC,Urine 1 /hpf (0-5)
[2024-08-08 11:16] LABS: INR 0.9 (<1.2); Partial Thromboplastin Time 24.4 sec (22.0-30.0)
--- NOTE | 2024-08-08 11:16 | XR ---
EXAMINATION TYPE: XR chest 2V DATE OF EXAM: 08/08/2024 COMPARISON: CT 07/25/2024 HISTORY: 45-year-old female presurgical evaluation for back surgery TECHNIQUE: Frontal and lateral views FINDINGS: Heart normal size. Mild interstitial prominence of the chronic appearance. Mild hyperinflation. No co nsolidation or pleural effusion. IMPRESSION: COPD with mild emphysema. No acute process seen. [facility], , 08/08/2024 11:13 AM
[2024-08-08 15:07] LABS: Basophils # (A) 0.05 X 10*3/uL (0.00-0.10); Basophils % (A) 0.7 %; Eosinophils # (A) 0.17 X 10*3/uL (0.04-0.35); Eosinophils % (A) 2.5 %; HGB 13.9 g/dL (12.0-15.0); Lymphocytes # (A) 2.21 X 10*3/uL (0.90-5.00); MCH 31.2 pg (27.0-32.0); MCHC 33.1 g/dL (32.0-37.0); MCV 94.2 FL (80.0-97.0); Mean Platelet Volume 10.9 FL (9.5-12.2); Monocytes # (A) 0.42 X 10*3/uL (0.20-1.00); Monocytes % (A) 6.1 %; NRBC Per 100 WBC 0 X 10*3/uL (0.00-0.01); Neutrophils # (A) 4.05 X 10*3/uL (1.80-7.70); Neutrophils % (A) 58.6 %; Platelet Count 285 X 10*3/uL (140-440); RBC 4.46 X 10*6/uL (4.10-5.20); RDW 13.1 % (11.5-14.5); WBC 6.91 X 10*3/uL (4.50-10.00)
[2024-08-08 15:28] LABS: BUN/Creat Ratio 12.88 Ratio (12.00-20.00); Blood Urea Nitrogen 10.3 mg/dL (9.0-27.0); Carbon Dioxide 19.4 mmol/L (21.6-31.8); Chloride 105 mmol/L (96-109); Glucose 112 mg/dL (70-110); HCG,Quantitative Serum <3.0 mIU/mL (0.0-6.0); Potassium 4.2 mmol/L (3.5-5.5); Sodium 137 mmol/L (135-145)
== END | disposition home or self-care (01) ==
LOC: LABWHC1 09:51
PROVIDERS: ATTEND Orthopaedic Surgery Orthopaedic Surgery of the Spine
CPT/HCPCS: 36415; 71046; 80048; 81001; 84702; 85025; 85610; 85730; 87070

== ENCOUNTER → 2024-08-27 | Day surgery (SDC) | payer BC ==
[~2024-08-27] MED LIST: ACETAMINOPHEN TAB 325 MG TAB PO SCH; BENZOCAINE/MENTHOL LOZENG 1 EACH LOZENGE MUCOUS MEM PRN; CYCLOBENZAPRINE 10 MG TAB PO PRN; HYDROcodone/APAP 5-325MG 1 EACH TAB PO PRN; HYDROmorphone 0.5 MG/0.5 ML SYRINGE IVP PRN; IBUPROFEN 400 MG TAB PO PRN; KETOROLAC 15 MG/ML 1 ML VIAL IVP PRN; LIDOCAINE 1% INJ 10MG/ML (20 ML MDV) ONE; MIDAZOLAM 2 MG/2 ML VIAL ONE; PROPOFOL 10 MG/ML 20 ML VIAL IV ONE; Pre Op ABX Message 1 EACH MISC MISCELLANE ONE; SODIUM CHLORIDE 0.9% 1,000 ML IV SCH; SUCCINYLCHOLINE CHLORIDE 200 MG/10 ML VIAL IV ONE; ceFAZolin 1,000 MG in SODIUM CHLORIDE 0.9% IRRIGATIO 1,000 ML IRRIGATION PRN; fentaNYL (PF) 50 MCG/ML 2 ML AMP ONE; traMADol 50 MG TAB PO PRN
[2024-08-27] MEDS: IV FLUID CONTINUATION 1,000 ML IV ONE (07:05)
[2024-08-27] MEDS: LACTATED RINGERS 1,000 ML IV SCH (07:08)
[2024-08-27] MEDS: SCOPOLAMINE 1 MG/72 HR PATCH TRANSDERM STA (07:09)
[2024-08-27] MEDS: ONDANSETRON 4 MG/2 ML VIAL IVP ONE (07:09)
[2024-08-27] MEDS: DEXAMETHASONE SOD PHOSPHATE 4 MG/ML 1 ML VIAL IV ONE (07:09)
[2024-08-27] MEDS: ceFAZolin 1,000 MG VIAL IVPB ONE (07:25)
[2024-08-27] MEDS: LIDOCAINE 1%-EPI 1:100,000 20 ML VIAL SQ ONE (07:46)
[2024-08-27] MEDS: LACTATED RINGERS 1,000 ML IV ONE (08:18)
[2024-08-27 08:39] VITALS: TEMP 97.3
--- NOTE | 2024-08-27 09:01 | P.OP ---
Date of Procedure: 08/27/24 Preoperative Diagnosis: Lipoma 2 at the upper thoracic, measuring approximately 10 x 6 x 3 centimeters on the left and 6 x 6 x 3 centimeters on the right Postoperative Diagnosis: same Anesthesia: GETA Pathology: other (2 sent separately to [facility]) Condition: stable Disposition: PACU Description of Procedure: BRIEF OPERATIVE NOTE Preoperative Diagnosis:Lipoma 2 at the upper thoracic, measuring approximately 10 x 6 x 3 centimeters on the left and 6 x 6 x 3 centimeters on the right Postoperative Diagnosis:Lipoma 2 at the upper thoracic, measuring approximately 10 x 6 x 3 centimeters on the left and 6 x 6 x 3 centimeters on the right Procedure: excision of subcutaneous lipoma 2 at the thoracic area Surgeon: Dr. Gonzalez Indoor Landscaper/Gardener: Julius BAE Anesthesia: General anesthesia Estimated blood loss:less than 10 mL Complications: None apparent Components implanted:none Specimen: Lipoma 2 sent to pathology separately, left lipoma measuring approximately 10 x 6 x 3 and the right lipoma measuring approximately 6 x 6 x 3 cm Disposition: To recovery room in good stable condition. OPERATIVE INDICATIONS The patient has been having issues in their mid back and has noticed growing of lumps bilaterally at her upper thoracic spine. She felt that these were getting more painful and uncomfortable for her. She feels that they have been inc reasing in size.. He has had to take medications regularly for the pain with [id number] meds without significant relief. The patient has been through conservative treatment. we discussed the possibility of these lipomas given that they were expanding potentially increase in size and there were some symptomatic for her.I discussed the fact that surgery and Further removal of the masses may not alleviate her pain. She would also still has some disfiguring changes with the scar and potential voids around the contours of her skin and subcu tissue with surgery. She understands these issues. We discussed various treatment options including surgery, and the patient wishes to proceed with surgery We discussed the risk, patient's alternatives and benefits of surgery including but not limited to, risk of bleeding risk of infection, risk of need for further surgery, risk of decreased, loss of motion, loss of function, nerve damage, paralysis, heart attack, blindness and . OPERATIVE SUMMARY After discussing all the risks, patient alternatives and benefits at length, the patient elected to proceed with surgical intervention, signed informed consent, and presented for their procedure. The patient was seen and examined in the preoperative holding area and the surgical site was markedbilaterally under a thoracic spine. The patient was given antibiotics and brought to the operating room. The patient was sedated and intubated by anesthesia in standard fashion. The patient was positioned on to the operating room table in a prone position on the appropriate frame which was well-padded and well molded. We were careful to pad any bony prominences and pressure points. We were careful to maintain the patient's cervical spine and good neutral alignment and position throughout. The patient was prepped and draped in a normal standard fashion. An appropriate timeout and keystone protocol performed. We were able to proceed with the surgery. in similar fashion bilaterally, first starting on the left and then on the right,An incision was made at the midlineof the masses longitudinally over the main portion of the mass approximately 3-4 cm in length. Dissection was taken down subcutaneously to an area of fatty tissue that was identified as more organized. Palpating over this area it was clear that this was the mass intended. As able to dissect around the mass and keep some of the organization. The mass appeared to be fatty in nature and extended to be intimately associated with the muscle tissue. I was able to dissect it off of the muscle itself and keep the muscle intact. I was able to get around the entire area and remove the fatty tissue in mass. I further did some contouring. Removal of other fatty tissue. Good hemostasis was maintained. There is no drainage. There is no further mass present. The wound was irrigated and suctioned dry. This is done similarly laterally. The master passed off believed the fatty lipoma to pathology. We were able to proceed with closure. we took great care to close down potential space. The subcuticular tissue was closed with absorbable suture. The wound was cleaned and dried and dressed with the appropriate dressing. The drapes were broken down. The patient was gently rolled back onto their hospital bed being careful to maintain their cervical spine and good neutral alignment and position. They were woken up by anesthesia, extubated, and brought to the recovery room in good stable condition. The patient will be admitted to the hospital for observation and likely discharge home today and for appropriate postoperative care, medical management and monitoring. We will continue to follow them closely about the postoperative course.
[2024-08-27 09:22] VITALS: RESP 16
[2024-08-27 09:31] VITALS: BP 112/78; PULSE 72
== END | disposition home or self-care (01) ==
LOC: OR 06:25
PROVIDERS: ATTEND Orthopaedic Surgery Orthopaedic Surgery of the Spine
DX: D17.1 Benign lipomatous neoplasm of skin and subcutaneous tissue of trunk (principal); E78.5 Hyperlipidemia, unspecified; F41.8 Other specified anxiety disorders; Z91.89 Other specified personal risk factors, not elsewhere classified; F17.210 Nicotine dependence, cigarettes, uncomplicated; Z79.899 Other long term (current) drug therapy; Z88.1 Allergy status to other antibiotic agents
CPT/HCPCS: 21933 ×2; 81025; 88304; J2250; J0330; J1100; J2405; J0690; J2003; J3010; J2704

== ENCOUNTER → 2024-12-17 | Outpatient (CLI) | payer BC ==
--- NOTE | 2024-12-17 13:56 | US ---
EXAMINATION TYPE: US venous doppler duplex LE RT DATE OF EXAM: 12/17/2024 1:33 PM COMPARISON: NONE CLINICAL INDICATION: Female, 44 years old with history of M79.661 PAIN IN RLE; Pt states she had bad muscle spasm and now has right leg pain, Pain TECHNIQUE: The lower extremity deep venous system is examined utilizing real time linear array sonog gretel with graded compression, color doppler sonography, and spectral doppler. SIDE PERFORMED: Right FINDINGS: VESSELS IMAGED: Common Femoral Vein Deep Femoral Vein Greater Saphenous Vein * Femoral Vein Popliteal Vein Small Saphenous Vein * Proximal Calf Veins (* superficial vessels) Right Leg: Negative for DVT, Color Doppler imaging shows patency of the vessels. Spectral waveforms are within normal limits. IMPRESSION: No ultrasound evidence for deep venous thrombosis. [facility], , 12/17/2024 1:54 PM
== END | disposition home or self-care (01) ==
LOC: RADUSWWP 13:04
PROVIDERS: ATTEND Family Medicine
DX: M79.661 Pain in right lower leg (principal)

== ENCOUNTER → 2024-12-22 | Outpatient (CLI) | payer BC ==
--- NOTE | 2024-12-22 09:49 | US ---
EXAMINATION TYPE: US arterial LE single level DATE OF EXAM: 12/22/2024 9:25 AM COMPARISONS: None CLINICAL INDICATION: Female, 44 years old with history of M79.661 PAIN IN RIGHT LOWER LEG; Pt states right leg pain that has improved TECHNIQUE: Systolic pressures were taken of the upper and lower extremity arteries with ankle-brachia l indices and toe brachial indices calculated bilaterally. History of: Smoker: Yes Hypertension: No Diabetic: No Hyperlipidemia: No Previous Vascular Surgery: No Vascular Ulcers: No FINDINGS: Doppler Waveforms: Right: Biphasic Left: Biphasic Brachial Artery systolic pressure: Right: 108 Left: 112 Posterior Tibial artery systolic pressure: Right: 129 Left: 137 Dorsalis Pedis artery systolic pressure: Right: 125 Left: 123 Ankle-Brachial Indices: Right: 1.15 Left: 1.22 (Normal > 0.6; Mild 0.35 - 0.59, Moderate 0.12 - 0.34, Severe <0.12) IMPRESSION: DEBBIE: Right: Normal 0.9 - 1.4, Recommendation: None Left: Normal 0.9 - 1.4, Recommendation: None [facility], , 12/22/2024 9:47 AM
== END | disposition home or self-care (01) ==
LOC: RADUSWWP 09:05
PROVIDERS: ATTEND Family Medicine
DX: M79.661 Pain in right lower leg (principal)
CPT/HCPCS: 93922

== ENCOUNTER → 2025-02-26 | Outpatient (CLI) | payer BC ==
--- NOTE | 2025-02-26 14:07 | CT ---
EXAMINATION TYPE: CT chest wo con DATE OF EXAM: 02/26/2025 11:42 AM COMPARISON: 07/25/2024 . CLINICAL INDICATION: Female, 44 years old with history of M79.601 PAIN IN R ARM R91.1 PULM NODULE; PH H, LUNG NODULES. PRIOR ON PACS. TECHNIQUE: Multiple axial images were obtained through the chest without IV contrast. Sagittal and co gordon reformats were created for review. MIP was performed on a separate workstation. CT DLP: 422 mGycm, Automated exposure control for dose reduction was used. FINDINGS: Heart normal size without pericardial effusion. No significant coronary artery calcifications. Aorta normal caliber with bovine configuration to the aortic arch. No thoracic lymph adenopathy by CT size criteria. * 9 mm subpleural nodularity posterior right base increased from 6 mm. Possible nodular subpleural a telectasis but should be reassessed at follow-up. * Stable 4 mm left basilar pulmonary nodule compatible with a benign etiology. Background mild emphysematous change. Minimal biapical pleural parenchymal scarring. No consolidation or pleural effusion. Visualized upper abdomen shows a small hiatal hernia and cholecystectomy clips. Bones: No osseous destructive process. Stable tiny bone island superior sternal body. IMPRESSION: 1. 9 mm subpleural nodularity posterior right lung base increased from 6 mm. This may represent an ar ea of nodular atelectasis but should be reassessed in 6 months. Fleischner guidelines utilized. 2. 4 mm left basilar pulmonary nodule is stable and benign. 3. COPD with mild emphysema. 4. Small hiatal hernia. [facility], , 02/26/2025 2:05 PM
[2025-02-26 21:19] LABS: Basophils # (A) 0.06 X 10*3/uL (0.00-0.10); Basophils % (A) 0.7 %; Eosinophils # (A) 0.11 X 10*3/uL (0.04-0.35); Eosinophils % (A) 1.4 %; HCT 40.8 % (37.2-46.3); HGB 13.8 g/dL (12.0-15.0); Lymphocytes # (A) 2.56 X 10*3/uL (0.90-5.00); Lymphocytes % (A) 31.6 %; MCH 31.4 pg (27.0-32.0); MCHC 33.8 g/dL (32.0-37.0); MCV 92.7 FL (80.0-97.0); Mean Platelet Volume 10.4 FL (9.5-12.2); Monocytes # (A) 0.55 X 10*3/uL (0.20-1.00); Monocytes % (A) 6.8 %; NRBC Per 100 WBC 0 X 10*3/uL (0.00-0.01); Neutrophils # (A) 4.77 X 10*3/uL (1.80-7.70); Neutrophils % (A) 58.9 %; Platelet Count 328 X 10*3/uL (140-440); RDW 13.4 % (11.5-14.5)
[2025-02-26 21:20] LABS: ALT 35 U/L (8-44); AST 26 U/L (13-35); Albumin 4.1 g/dL (3.8-4.9); Albumin/Globulin Ratio 1.46 Ratio (1.60-3.17); Alkaline Phosphatase 72 U/L (41-126); BUN/Creat Ratio 7.43 Ratio (12.00-20.00); Blood Urea Nitrogen 5.2 mg/dL (9.0-27.0); C Reactive Protein <0.30 mg/dL (0.00-0.80); Carbon Dioxide 18.1 mmol/L (21.6-31.8); Chloride 104 mmol/L (96-109); Chol/HDL Ratio 4.55 Ratio; Globulin 2.8 g/dL (1.6-3.3); Glucose 87 mg/dL (70-110); LDL Cholesterol,Calculated 71.7 mg/dL (0.0-131.0); Potassium 4.6 mmol/L (3.5-5.5); Rheumatoid Factor, Qnt <15 IU/mL (0-15); Sodium 134 mmol/L (135-145); Total Bilirubin <0.2 mg/dL (0.3-1.2); Total Protein 6.9 g/dL (6.2-8.2)
[2025-02-26 21:32] LABS: Erythrocyte Sedimentation Rate 11 mm/Hr (0-20)
[2025-02-26 21:44] LABS: INR <0.93 sec (0.93-1.11); Prothrombin Time 10.2 sec (9.9-11.9)
== END | disposition home or self-care (01) ==
LOC: RADCTMAIN 11:25
PROVIDERS: ATTEND Family Medicine
DX: Z00.00 Encounter for general adult medical examination without abnormal findings (principal); Z13.220 Encounter for screening for lipoid disorders; Z13.1 Encounter for screening for diabetes mellitus; M79.601 Pain in right arm; L30.9 Dermatitis, unspecified; R91.1 Solitary pulmonary nodule; R79.1 Abnormal coagulation profile; J44.9 Chronic obstructive pulmonary disease, unspecified; K44.9 Diaphragmatic hernia without obstruction or gangrene; J43.9 Emphysema, unspecified
CPT/HCPCS: 71250; 80053; 80061; 83036; 83721; 85025; 85610; 85652; 86038; 86140; 86431

== ENCOUNTER → 2025-04-10 | Outpatient (CLI) | payer BC ==
--- NOTE | 2025-04-10 09:28 | MM ---
Reason for Exam: Additional evaluation requested from prior study. Last mammogram was performed 1 year(s) and 5 month(s) ago. Patient History: Menarche at age 13. First Full-Term at age 26. Premenopausal. Hormonal Contraceptives, from age 20 until age 28. 2012, Benign Excisional Biopsy on the left side. Maternal cousin had breast cancer, age 26. Maternal aunt had breast cancer, age 50. Maternal cousin had breast cancer under age 50. Mother had breast cancer, age 52. Last menstrual period: 04/08/2025 Risk Values: Lisha 5 year model risk: 2.2%. NCI Lifetime model risk: 23.4%. Prior Study Comparison: 11/12/2012 Screening Mammogram, Unknown. 11/29/2012 Screening Mammogram, Unknown. 11/29/2012 Diagnostic Ultrasound, [facility]. 12/11/2012 Screening Mammogram, Unknown. 01/23/2018 Bilateral Diagnostic Mammogram, [facility]. 01/23/2018 Right Diagnostic Ultrasound, [facility]. 11/06/2023 Bilateral MG 3D diag mammo w/cad HECTOR, [facility]. 11/06/2023 Right US breast limited RT, [facility]. Tissue Density: The breasts are heterogeneously dense, which may obscure small masses. Findings: Analyzed By CAD. Grouped Calcifications have increased from prior. These are located approximately 5.2 cm from nipple posterior nipple line on CC view. Upper aspect on MLO view. Overall Assessment: Suspicious, BI-RAD 4 Management: Stereotactic Core Biopsy of the right breast. Results were given to the patient verbally at the time of exam. Patient should continue monthly self-breast exams. A clinical breast exam by your physician is recommended on an annual basis. This exam should not preclude additional follow-up of suspicious palpable abnormalities. Note on Lisha scores and lifetime risk: 1. A Lisha score greater than 3% is considered moderate risk. If this is the case, consider specialist referral to assess eligibility for a risk reducing agent. 2. If overall lifetime risk for the development of breast cancer is 20% or higher, the patient may qualify for future screening with alternating mammogram and breast MRI. [facility], , 04/10/2025 9:23 AM. Electronically signed and approved by: sOcar Guerra DO
== END | disposition home or self-care (01) ==
LOC: RADMAMWWP 08:23
PROVIDERS: ATTEND Family Medicine
DX: Z12.31 Encounter for screening mammogram for malignant neoplasm of breast (principal); R92.333 Mammographic heterogeneous density, bilateral breasts; R92.1 Mammographic calcification found on diagnostic imaging of breast; Z80.3 Family history of malignant neoplasm of breast; Z92.0 Personal history of contraception
CPT/HCPCS: 77062; 77066

== ENCOUNTER → 2025-04-27 | Day surgery (SDC) | payer BC ==
[2025-04-27] MEDS: ALPRAZolam 0.5 MG TAB PO PRN (07:43)
[2025-04-27 07:49] VITALS: BP 114/78; PULSE 82; RESP 16; TEMP 98.1
--- NOTE | 2025-05-06 08:30 | MM ---
Risk Values: Lisha 5 year model risk: 2.2%. NCI Lifetime model risk: 23.4%. Prior Study Comparison: 01/23/2018 Bilateral Diagnostic Mammogram, [facility]. 11/06/2023 Bilateral MG 3D diag mammo w/cad HECTOR, [facility]. 04/10/2025 Bilateral MG 3D diag mammo w/cad HECTOR, [facility]. Pathology Description: Location: upper outer quadrant. Marker Left Behind. Specimen Radiograph. Approach: Lateral to Medial Needle Type: Eviva Cores: 7 Skin Nicks: 1 Gauge: 9 The microcalcifications in question within the right breast were targeted by the undersigned. Procedure was performed by the undersigned. Informed consent was obtained and all of the patients questions were answered. The standard sterile technique was utilized and appropriate local anesthesia was obtained with 1% licocaine. Mammotome probe was advanced and multiple core samples were obtained and sent to pathology for interpretation. Microclip marker was deployed at the site of biopsy. Patient was transferred to mammography suite for post procedure mammogram. Post procedural mammogram demonstrates appropriate deployment of radiopaque clip marker. The patient tolerated the procedure well and left the department in stable condition. Pathology results are pending. Impression: Successful stereotactic core biopsy right breast. Pathology Results: Result: Benign, Fibrocystic change. Pathology and radiology were reviewed. Findings are concordant. RIGHT BREAST, STEREOTACTIC NEEDLE CORE BIOPSY: Benign breast with fibrocystic changes including sclerosing adenosis and columnar cell change with calcifications. Overall Assessment: Benign Management: Diagnostic Mammogram of the right breast in 6 months. Electronically signed and approved by: John Estrada M.D. Radiologis
== END ==
LOC: RADMAMWWP 07:29
PROVIDERS: ATTEND Family Medicine
DX: N60.21 Fibroadenosis of right breast (principal); R92.8 Other abnormal and inconclusive findings on diagnostic imaging of breast
CPT/HCPCS: 88305; 19081; A4648; J2003